=== PATIENT | female | born 1985 | race Hispanic/Latino ===

== ENCOUNTER 2017-11-07 00:16 | Inpatient (IN) | payer MEDICAID, SELFPAY ==
[2017-11-07] MEDS ORDERED: Ondansetron HCl/PF 4 MG/2 ML Vial IVP PRN (00:55)
[2017-11-07] MEDS ORDERED: Magnesium Sulfate 20 gm/500 ml 20 GM/500 ML BAG ONE (00:55)
[2017-11-07] MEDS ORDERED: Promethazine HCl 25 MG/ML VIAL IM PRN (00:55)
[2017-11-07] MEDS ORDERED: Calcium Gluc 4.6 MEQ/10 ML (100 MG/ML) SLOW IVP PRN (00:55)
--- NOTE | 2017-11-07 00:56 | PDOC.LDHP ---
Labor and Delivery H&P HPI: Patient of the Clinic, first seen by Dr Cj Verduzco (Residents). Patient is a 32 yo here for contractions. She denies HAs, visual changes, or RUQ pain. On arrival to Triage, she was noted to have BPs of 170s-180s/90s. Review of Systems: Complete ROS performed and negative as per HPI. Current gestational age (weeks): 38 (3 days) Dating criteria: last menstrual period Grav: 3 Para: 2 OB History Details: Prior SVDs Current complications: none Abnormal US findings: No Current medications: pre-jared vitamins - Physical Exam Abnormal vital signs: BPs 170-180s/70s General: NAD Heart: RRR Lungs: CTAB Abdomen: gravid (EFW 7#) FHT: category 1 [place] contractions every: Every 5-10 - Vaginal Exam cm dilated: 5 Effacement: 90% Station: 0 - Assessment L&D Assessment: term patient in labor Severe Preeclampsia by Blood pressure criteria - Plan Plan: admit to L&D, labor augmentation if indicated, informed consent obtained, magnesium for seizure prophylaxis, anesthesia consult for pain management, other (Order CMP, CBC, Urine protein/Cr ratio. Oral nifedipine per ACOG protocol (10mg, then, 20, and another 20mg 20 minutes apart for persistaent BPs > 160/110). Needs MgSo4.)
[2017-11-07] MEDS ORDERED: Magnesium Sulfate 20 GM/WATER 500 ML BAG IVPB SCH (01:00)
[2017-11-07] MEDS ORDERED: NIFEdipine 10 MG CAP PO PRN (01:04)
[2017-11-07] MEDS ORDERED: Labetalol HCl 100 MG/20 ML VIAL SLOW IVP PRN (01:10)
[2017-11-07] MEDS ORDERED: NIFEdipine 10 MG CAP ONE (01:16)
[2017-11-07] MEDS: Lactated Ringer's 1,000 ML IV SCH ×2 (01:20→01:23)
[2017-11-07] MEDS: Magnesium Sulfate 20 gm/500 ml 20 GM/500 ML BAG IVPB SCH ×2 (01:43→10:43)
[2017-11-07 01:45] LABS: Hemoglobin 12.3 g/dL (12.0-16.0); Mean Corpuscular HGB CONC 34.7 g/dL (32.0-36.0); Mean Corpuscular Hemoglobin 31.2 pg (27.0-31.0); Mean Corpuscular Volume 90.1 fl (81.0-99.0); Mean Platelet Volume 9.5 fL (7.4-10.4); Platelet Count 220 thou/uL (130-400); Red Blood Cell (RBC) Count 3.93 mill/uL (4.20-5.40); White Blood Cell (WBC) Count 11.6 thou/uL (4.8-10.8)
--- NOTE | 2017-11-07 01:53 | PDOC.EVN ---
Event Note - Event Note Event Note: @0150: called for patient with low blood pressure and apparent unresponsive. I arrived within 1 minute of call. Residents at bedside and rapid response team. Oral nifedipine 10mg given X1 at approx 0115 and low BP followed. No evidence abruption..uterus soft, nt and no VB. Patient now alert and orientated. CX:7-8/100/0/I Category I strip at 140s Hold Nifedipine. 103/60 now. Start second line for IVFs.
--- NOTE | 2017-11-07 01:56 | PDOC.EVN ---
Event Note - Event Note Event Note: Ok for mag sulfate restart. Will DC nifedipine.
[2017-11-07 02:06] LABS: HBSAg Index 0.11 S/CO (0-0.99); Hep B Surf Ag Non-Reactive S/CO (NonReactive)
[2017-11-07 02:07] LABS: ALT (SGPT) 27 U/L (8-55); AST (SGOT) 22 U/L (5-34); Albumin 3.3 g/dL (3.5-5.0); Alkaline Phosphatase 227 U/L (40-150); Anion Gap 11 mmol/L (10-20); BUN (Urea Nitrogen) 13 mg/dL (7.0-18.7); Bilirubin, Total 0.2 mg/dL (0.2-1.2); Calc. Creatinine Clearance 0 mL/min (70-130); Calcium 9.1 mg/dL (7.8-10.44); Carbon Dioxide 21 mmol/L (22-29); Chloride 107 mmol/L (98-107); Estimated GFR-MDRD Greater than 90; Globulin 3.2 g/dL (2.4-3.5); Glucose 86 mg/dL (70-105); Protein, Total 6.5 g/dL (6.0-8.3); Sodium 135 mmol/L (136-145)
[2017-11-07] MEDS ORDERED: Lidocaine 1% (PF) 30 ML VIAL ONE (02:32)
[2017-11-07] MEDS ORDERED: LR / Pitocin 40 units/1000 ml 1,000 ML ONE ×2 (02:32→08:06)
[2017-11-07 03:18] VITALS: BMI 30.7
--- NOTE | 2017-11-07 03:31 | PDOC.LDPN ---
Labor & Delivery Progress Note - Subjective Subjective: painful contractions - Objective Vital signs reviewed and normal: yes (Pressures have been consistently controlled since treatment w/nifedipine) General: breathing through contractions Uterine fundus: non tender Dilation: 8 Effacement: 100% Station: -1 FHT: category 1, variability present, absent or minimal variables [place] contractions every: 3 Resuscitative measures: maternal IV fluids - Assessment (1) Severe preeclampsia Code(s): O14.10 - SEVERE PRE-ECLAMPSIA, UNSPECIFIED TRIMESTER Current Visit: Yes Status: Acute Qualifiers: Trimester: third trimester Qualified Code(s): O14.13 - Severe pre-eclampsia , third trimester Comment: Presures have been back to baseline after administration of nifedipine. Mg has been started. Continue Mg checks q1. CMP finds normal LFTs. CBC shows normal platelets. Urine still pending. No hyperreflexia, no headaches , no changes in vision, normal O2 sat (2) Term Code(s): Z34.80 - ENCOUNTER FOR SUPRVSN OF NORMAL , UNSP TRIMESTER Current Visit: Yes Status: Acute Comment: In active labor. Cat 1 strip. Continue monitoring. Recheck cervix in 2 hours Plan: continue plan of care
[2017-11-07 04:12] LABS: Bilirubin Negative (Negative); Blood, Urine Negative (Negative); Clarity CLEAR (Clear); Glucose, Urine (Dipstick) Negative (Negative); Leukocyte Negative (Negative); Nitrite Negative (Negative); Protein, Urine (Dipstick) Negative (Neg-Trace); Specific Gravity, Urine 1.011 (1.002-1.036); Urobilinogen 0.2 mg/dL (0.2-1.0); pH, Urine 6.5 (5.0-9.0)
[2017-11-07 04:14] LABS: Bacteria/HPF None Seen HPF (None Seen); Hyaline Casts/LPF 0-3 HYALINE CAST LPF (0-3 Hyaline); RBC/HPF 0-3 HPF (0-3); Squamous Epithelial None Seen HPF (0-3); WBC/HPF None Seen HPF (0-3)
[2017-11-07 05:25] LABS: Syphilis Antibody Nonreactive (Nonreactive); Syphilis Antibody Index 0.03 S/CO (<1.00 Non-Reactive)
--- NOTE | 2017-11-07 05:54 | PDOC.LDPN ---
Labor & Delivery Progress Note - Subjective Subjective: painful contractions - Objective Vital signs reviewed and normal: yes (BP continue to be controlled) General: breathing through contractions Uterine fundus: non tender Dilation: 9.5 Effacement: 100% Station: 0 FHT: category 1, variability present, absent or minimal variables [place] contractions every: 5 Other exam findings: SROM w/bloody show - Assessment (1) Severe preeclampsia Code(s): O14.10 - SEVERE PRE-ECLAMPSIA, UNSPECIFIED TRIMESTER Current Visit: Yes Status: Acute Qualifiers: Trimester: third trimester Qualified Code(s): O14.13 - Severe pre-eclampsia , third trimester Comment: -Presures continue to be controlled. No more high or low measurements. -Continue Mg drip. There is some concern for decreased DTR, Mg level pending. -Continue Mg checks q1. -No urine protein. No headaches, no changes in vision, normal O2 sat w/no difficulty breathing (2) Term Code(s): Z34.80 - ENCOUNTER FOR SUPRVSN OF NORMAL , UNSP TRIMESTER Current Visit: Yes Status: Acute Comment: SROM w/bloody between last check and now. No mec noted. Continued Cat 1 strip w/FHT baseline at 140 Continue monitoring. Recheck in an hour, or if pt feels the need to push Plan: continue plan of care
--- NOTE | 2017-11-07 07:29 | PDOC.OPDEL ---
OB Operative/Delivery Note Delivery Dr/Surgeon: Cj Rodas/Stacia Smith (Residents); Palmer (Faculty) Pre-Delivery Diagnosis: active labor, other (Severe Preeclampsia by BPs initially) Procedure/Post Delivery Dx: spontaneous vaginal delivery (Delivery 11/07/17 at 0713) Anesthesia: none - Findings A - 1 min: 9 - 5 min: 9 - Additional Findings/Plan Placenta delivered: spontaneous (Delivered within 10 minutes of baby; Sherrell) Repaired Obstetrical Laceration: none Estimated blood loss: 300 Compilations/Other Findings: Vigorous female. 3VC. Cord gas sent for MgSo4 use Counts correct Post delivery plan: recovery in LICU
[2017-11-07] MEDS ORDERED: LR / Pitocin 40 units/1000 ml 1,000 ML IV SCH (07:54)
[2017-11-07] MEDS ORDERED: Adacel (T-DAP) 0.5 ML VIAL IM ONE (07:54)
[2017-11-07] MEDS ORDERED: Bisacodyl 10 MG SUPP PR PRN (07:54)
[2017-11-07] MEDS ORDERED: Milk Of Magnesia 30 ML UDCUP PO PRN (07:54)
[2017-11-07] MEDS ORDERED: Misoprostol 200 MCG TAB ONE (08:07)
[2017-11-07] MEDS ORDERED: Misoprostol 100 MCG TAB ONE (08:07)
--- NOTE | 2017-11-07 08:18 | PDOC.OPDEL ---
OB Operative/Delivery Note - Additional Findings/Plan Compilations/Other Findings: Delivering Physicians: Sidra Attending: Dr. Chakraborty Procedure: Spontaneous Vaginal Delivery Anesthesia: epidural, Local for Repair EBL: 200 ml Pre-op Diagnosis: 1. Term intrauterine in labor 2. Pre-Eclampsia with severe features Post-op Diagnosis: 1. Term intrauterine , delivered 2. same as above Indications: A 32 y/o female presents in active labor Delivery Note: This is 32yo F @ 38.3 wks who delivered a viable F infant at 07:13. Following an uneventful antepartum course, a vigorous FEMALE was delivered over an intact perineum in the Right occipitoanterior position. Anterior Shoulder and then remainder of the body delivered. No nuchal cord. The head was held down and mouth and nares were bulb suctioned. Cord clamped and cut and cord blood collected. Cord sample was also taken. Placenta delivered intact with a 3 vessel cord noted. Fundal massage was performed and the fundus was firm. The cervix and vagina were inspected and found to have a single 1st degree hemostatic laceration without need of repair. ree of lacerations. Infant went to nursery in good condition for routine care. Apgars were 9 / 9 at 1 & 5 minutes, respectively. Patient tolerated delivery well and went to after routine recovery/care.
[2017-11-07] MEDS: Ferrous Sulfate 325 MG TAB PO SCH ×2 (10:41→18:20)
[2017-11-07] MEDS: Docusate Calcium (SURFAK) 240 MG CAP PO SCH (10:42)
--- NOTE | 2017-11-07 11:05 | PDOC.EVN ---
Event Note - Event Note Event Note: 32 yo ->3 delivered @ 38.3w via @ 07:13 11/07/17. S: Patient denies headaches, vision changes, n/v/d, lower extremity swelling, or abdominal pain. She is currently trying to breastfeed. O: Gen: NAD Vitals: BP 110s/60s, WNL CV: RRR, no murmurs Extremities: No edema or erythema DTR: 2+ bilaterally A/P 1. Term intrauterine , delivered - Continue routine care 2. Pre-Eclampsia with severe features - Continue Magnesium - Continue Q4h Mg checks - BP well controlled - Will continue to monitor diuresis, currently 75 ml - 100 ml/hr
--- NOTE | 2017-11-07 13:39 | PDOC.EVN ---
Event Note - Event Note Event Note: 32 yo ->3 delivered @ 38.3w via @ 07:13 11/07/17. S: Patient denies headaches, vision changes, n/v/d, lower extremity swelling, or abdominal pain. O: Gen: NAD Vitals: BP 120s/60s, WNL CV: RRR, no murmurs Extremities: No edema or erythema DTR: 2+ bilaterally A/P 1. Term intrauterine , delivered - Continue routine care 2. Pre-Eclampsia with severe features - Transfer to post - D/C magnesium 6 hr post delivery. - BP well controlled - Will continue to monitor diuresis, currently 75 ml - 100 ml/hr
[2017-11-08] MEDS: Lactated Ringer's 1,000 ML IV SCH ×3 (06:39→17:17)
[2017-11-08] MEDS: Docusate Calcium (SURFAK) 240 MG CAP PO SCH ×3 (06:39→22:13)
--- NOTE | 2017-11-08 08:25 | PDOC.PP ---
Post Progress Note Post Day #: 1 Subjective: Patient is doing well. She states she has minimal pain. She states her bleeding is basically less than a menstrual cycle. She denies chest pain, sob, n/v/d, fevers, or chills. She denies vision changes, headaches, or lower extremity swelling. She also notes that she would like to go home today. No other complaints this morning. PO intake tolerated: yes Flatus: yes Ambulation: yes Vital Signs (12 hours) Temp Pulse Resp BP 11/08/17 05:00 98.5 F 55 L 18 113/57 L 11/08/17 04:00 98.6 F 55 L 18 11/08/17 01:00 98.6 F 70 18 119/65 11/08/17 00:00 98.6 F 70 18 11/07/17 21:00 98.6 F 70 18 119/65 Weight Weight 68.946 kg - Physical Examination General: NAD Cardiovascular: no m/r/g, RRR Respiratory: clear to auscultation bilaterally, non-labored breathing Abdominal: + bowel sounds, lochia, no distention, appropriately TTP Extremities: negative homans (B) Skin: no rash Neurological: no gross focal deficits Psychiatric: A&Ox3 Result Diagrams: 11/07/17 01:22 11/07/17 01:05 Additional Labs: Post Labs Blood Type O POSITIVE 11/07/17 01:19 Hep Bs Antigen Non-Reactive S/CO (NonReactive) 11/07/17 01:05 (1) Term delivered Code(s): O80 - ENCOUNTER FOR FULL-TERM UNCOMPLICATED DELIVERY Status: Acute (2) Severe preeclampsia Code(s): O14.10 - SEVERE PRE-ECLAMPSIA, UNSPECIFIED TRIMESTER Status: Acute QualifierTitle: Trimester: third trimester Qualified Code(s): O14.13 - Severe pre-eclampsia, third trimester - Assessment/Plan 1. Term delivered - Doing well - H & H appropriate - Continue routine care 2. Severe Pre-eclampsia - BP well controlled - Mg turned off 6 hours post delivery - Will reassess later today for discharge. Disposition: Stable, will await discharge planning. <Alan Smith - Last Filed: 11/08/17 08:23> Weight Weight 152 lb Result Diagrams: 11/07/17 01:22 11/07/17 01:05 Additional Labs: Post Labs Blood Type O POSITIVE 11/07/17 01:19 Hep Bs Antigen Non-Reactive S/CO (NonReactive) 11/07/17 01:05 <Carolyn Velasquez - Last Filed: 11/13/17 11:28> Attending Addendum - Attending Addendum Date/Time: 11/13/17 1127 I personally evaluated the patient and discussed the management with Dr. Smith. I agree with the History, Examination, Assessment and Plan documented above with any addition or exceptions noted below. Since patient is PPD 1 with diagnosis of severe preeclampsia, will continue to monitor until tomorrow. <Carolyn Velasquez - Last Filed: 11/13/17 11:28>
[2017-11-08] MEDS: Ferrous Sulfate 325 MG TAB PO SCH ×2 (08:49→17:17)
[2017-11-09] MEDS: Lactated Ringer's 1,000 ML IV SCH ×2 (02:19→09:16)
--- NOTE | 2017-11-09 06:50 | PDOC.PP ---
Post Progress Note Post Day #: 2 Subjective: No MONTEJO, no vision changes, no RUQ pain PO intake tolerated: yes Flatus: yes Ambulation: yes Vital Signs (12 hours) Temp Pulse Resp BP 11/09/17 00:07 98.2 F 77 18 135/78 11/08/17 20:00 97.8 F 67 18 140/81 Weight Weight 152 lb one high value of 140/80 yesterday PM around 8PM - Physical Examination General: NAD Cardiovascular: no m/r/g Respiratory: clear to auscultation bilaterally Abdominal: + bowel sounds Extremities: negative homans (B) Neurological: no gross focal deficits Psychiatric: A&Ox3, normal affect Result Diagrams: 11/07/17 01:22 11/07/17 01:05 Additional Labs: Post Labs Blood Type O POSITIVE 11/07/17 01:19 Hep Bs Antigen Non-Reactive S/CO (NonReactive) 11/07/17 01:05 (1) Term delivered Code(s): O80 - ENCOUNTER FOR FULL-TERM UNCOMPLICATED DELIVERY Status: Acute (2) Vaginal delivery Code(s): O80 - ENCOUNTER FOR FULL-TERM UNCOMPLICATED DELIVERY Status: Acute - Assessment/Plan Plan: Doing well . No evidence severe PIH changes. She has been observed for 48 hours and I will release home as she is well rather than 72 hours OBS. No antihypertensive meds needed. Follow up BP next week. Home with Nancy.
--- NOTE | 2017-11-09 06:56 | PDOC.EVN ---
Event Note - Event Note Event Note: DISCHARGE NOTE: Admit: 11/07/09 Discharge: 11/09/17 Procedure: Vaginal Delivery Other Diagnosis: Severe preeclampsia Course: This patient presented in spontaneous labor and initially on arrival had severe systolic hypertension. She received magSulfate during labor. on at 0713. mag Sulfate continued for 6 hours (abbreviated) due to good diuresis and non-hypertensive BPs...no symptoms. BPs were observed for 48 hours and sent home. Follow up BP in one week. Meds: Motrin prn
[2017-11-09 08:45] VITALS: BP 133/60; TEMP 97.9
[2017-11-09] MEDS: Ferrous Sulfate 325 MG TAB PO SCH (09:15)
[2017-11-09] MEDS: Docusate Calcium (SURFAK) 240 MG CAP PO SCH (09:16)
== END 2017-11-09 12:00 | disposition home or self-care (01) | DRG 775 ==
LOC: L&D/OP 00:16 → L&D 01:03 → 3SW 14:45
PROVIDERS: ADMIT Obstetrics & Gynecology; ATTEND Obstetrics & Gynecology
PROC: 10E0XZZ Delivery of Products of Conception, External Approach (ICD-10-PCS; principal; 2017-11-07)
PROC: 10907ZC Drainage of Amniotic Fluid, Therapeutic from Products of Conception, Via Natural or Artificial Opening (ICD-10-PCS; 2017-11-07)
DX: O14.14 Severe pre-eclampsia complicating childbirth (principal); I95.89 Other hypotension; Z37.0 Single live birth; Z3A.38 38 weeks gestation of pregnancy
CPT/HCPCS: 36415; 80053; 81001; 83735; 85027; 86780; 87340; 88307; 99285; J2001; J3475